=== PATIENT | male | born 1965 | race Caucasian/White ===

== ENCOUNTER 2024-11-02 09:15 | Outpatient (RCR) | payer BC, SELFPAY | END 2024-11-27 10:45 | disposition home or self-care (01) | PROVIDERS: PCP Family Medicine; Visit Provider Family Medicine | DX: S42.024D Nondisplaced fracture of shaft of right clavicle, subsequent encounter for fracture with routine healing (principal); M75.01 Adhesive capsulitis of right shoulder; Z74.01 Bed confinement status; M25.511 Pain in right shoulder; R53.1 Weakness; Z51.89 Encounter for other specified aftercare | CPT/HCPCS: 97110; 97140; 97161 ==

== ENCOUNTER 2025-08-02 15:45 | Outpatient (RCR) | payer OTHER, SELFPAY | END 2025-09-05 07:45 | disposition home or self-care (01) | PROVIDERS: PCP Family Medicine; Visit Provider Student in an Organized Health Care Education/Training Program | DX: Z48.89 Encounter for other specified surgical aftercare (principal); M25.562 Pain in left knee; Z51.89 Encounter for other specified aftercare | CPT/HCPCS: 97110; 97112; 97140; 97161 ==